=== PATIENT | female | born 1975 | race Caucasian/White ===

== ENCOUNTER 2021-11-26 21:53 | Emergency (ER) | payer OTHER, SELFPAY ==
[2021-11-26] VITALS (7 sets, daily range): BP systolic 99–147; BP diastolic 65–99; PULSE 66–109; RESP 13–20; TEMP 37.3–37.5; O2SAT 97–99; BMI 23.5
--- NOTE | 2021-11-26 21:55 | EKG12_ITS ---
Test Reason : STROKE Blood Pressure : / mmHG Vent. Rate : 100 BPM Atrial Rate : 100 BPM P-R Int : 140 ms QRS Dur : 084 ms QT Int : 356 ms P-R-T Axes : 047 065 054 degrees QTc Int : 459 ms Normal sinus rhythm Normal ECG Confirmed by KENIA MOHAN, EVIN ([id number]), online content editor SABINA CAREY ([id number]) on 11/28/2021 9:42:36 AM Referred By: BRODY Confirmed By:BELLE AQUINO MD
--- NOTE | 2021-11-26 21:55 | CT_ITS ---
STUDY: CTA HEAD AND NECK WITH CONTRAST REASON FOR EXAM: Female, 46 years old. Neuro deficit, acute, stroke suspected RADIATION DOSAGE (If Supplied By Facility): CTDIvol = ( 14.63 ) mGy, DLP = ( 660.71 ) mGycm TECHNIQUE: CT angiography was performed with a multi-detector CT scanner. Data acquisition was obtained from the skull base through the vertex following intravenous administration of IV 100mL Isovue-370. MIP images were reconstructed from the axial data set. Post-processing of the angiographic images was performed, with multiplanar reformation and 3D reconstruction. Individualized dose optimization techniques were used for this CT. COMPARISON: No relevant priors. FINDINGS: Normal bilateral petrous carotid arteries. Normal right cavernous carotid artery with a normal supraclinoid bifurcation. Normal left cavernous carotid artery with a normal supraclinoid bifurcation. Normal right A1 segments of the anterior cerebral artery. Normal left A1 segments of the anterior cerebral artery. Normal intact anterior communicating artery (ACOM). Normal bilateral A2 segments of the anterior cerebral arteries. Normal right M1 and M2 segments of the middle cerebral arteries, with a normal M1 bifurcation. Normal left M1 and M2 segments of the middle cerebral arteries, with a normal M1 bifurcation. There is non-visualization of the right posterior communicating artery (PCOM). Normal left posterior communicating artery (PCOM). Normal bilateral vertebral arteries. Normal basilar artery with a normal basilar bifurcation. The visualized bilateral superior cerebellar (SCA) arteries are normal. Normal bilateral P1, P2 and visualized P3 segments of the posterior cerebral arteries. There is no demonstrated aneurysm of the [place]. There is no demonstrated abnormality of the visualized brain. AORTIC ARCH: Normal visualized aortic arch. Normal origins of the brachiocephalic, left common carotid, and left subclavian arteries. RIGHT CAROTID ARTERIES: Normal right common carotid artery (CCA). Normal right common carotid bulb. Normal origin of the right internal carotid (ICA) artery without a hemodynamically significant stenosis. Normal visualized cervical portion of the right internal carotid artery. Normal origin of the right external carotid artery (ECA). LEFT CAROTID ARTERIES: Normal left common carotid artery (CCA). Normal left common carotid bulb. Normal origin of the left internal carotid (ICA) artery without a hemodynamically significant stenosis. Normal visualized cervical portion of the left internal carotid artery. Normal origin of the left external carotid artery (ECA). VERTEBRAL ARTERIES: Normal bilateral vertebral arteries. Other: There is postoperative change of the thyroid. CT/STROKE CTA Head AND Neck W/Con IMPRESSION: Normal CTA Head and neck with contrast. No aneurysm or large vessel occlusion. No internal carotid artery stenosis. N.B. : The above Results were Read Back by Teofilo Mg MD to Dr. Leandra MD, and understanding confirmed on 11/26/2021 22:30:05 (ET). Electronically Signed: Teofilo Mg MD at 22:34 EDT ,
--- NOTE | 2021-11-26 21:55 | CT_ITS ---
We are attempting to reach an attending provider to discuss findings. An addendum with communication details will be sent when the communication is complete. STROKE ALERT: HELICAL COMPUTED TOMOGRAPHY OF THE BRAIN WITHOUT CONTRAST ENHANCEMENT OF 2203 HOURS ON 11/26/2021: CLINICAL: 46-year-old female with an acute neurologic deficit, evaluate for a cerebrovascular accident. PROCEDURE: A helical CT of the brain was performed without contrast enhancement was demonstrated and osseous and soft tissue algorithm in the axial, coronal, and sagittal projections. FINDINGS: There is no evidence of ischemic or hemorrhagic cerebral infarct. There is no evidence of intracranial neoplasm. There is no subdural, epidural or intracerebral hematoma, hemorrhage or contusion. Ventricular system is of normal size progression. There is no evidence of cortical, central, or cerebellar atrophy. The posterior fossa is normal appearance. The sella and pituitary are normal. Normal calvarium without linear depressed skull fractures. The paranasal sinuses are normal. CT/STROKE Brain/Head without Cont IMPRESSION: 1. Normal examination. 2. No evidence of acute ischemic or hemorrhagic cerebral infarct. 3. No evidence of intracranial neoplasm. 4. No subdural, epidural, or intracerebral hematoma, hemorrhage or contusion. 5. Normal calvarium and paranasal sinuses. PS: These findings were relayed by telephone to the referring clinician at 2219 hours on 11/26/2021. Electronically Signed: Eduardo Romero MD at 22:21 EDT ,
[2021-11-26 22:00] LABS: Bedside Glucose 90 mg/dL (74-106)
--- NOTE | 2021-11-26 22:04 | EX.ED.DYSGE1 ---
HPI History of Present Illness Chief Complaint: Neuro S/Sx Narrative Narrative: Patient is a 46-year-old female with past medical history of hypothyroidism currently on Synthroid as well as anxiety for which she takes Ativan as needed. Patient states that around 1:00 AM she awoke from sleep and felt like she had some slurred speech and numbness which spontaneously resolved. She reports she had difficulty sleeping after this and therefore she felt tired and weak and off all day. she states about 45 minutes prior to arrival she began with similar symptoms and as this was the second time it occurred today she presents for evaluation. [facility] Medical History (Updated 11/26/21 @ 23:[address] Cris Delcid MD) Anxiety Chiari malformation Former tobacco use GERD (gastroesophageal reflux disease) Hypothyroidism Peptic ulcer disease Home Medications levothyroxine [Synthroid] 88 mcg PO DAILY 11/26/21 [History Last Taken Unknown] lorazepam 0.5 mg PO PRN PRN 11/26/21 [History Last Taken Unknown] norethindrone-e.estradiol-iron 1 tab PO DAILY 11/26/21 [History Last Taken Unknown] Allergy/AdvReac Type Severity Reaction Status Date / Time No Known Allergies Allergy Verified 11/26/21 22:06 Surgical History (Updated 11/26/21 @ 23:[address] Cris Delcid MD) H/O esophagogastroduodenoscopy H/O thyroidectomy Previous section Social History (Updated 11/26/21 @ 22:[address] Cris Delcid MD) household members: spouse Smoking Status: Former smoker [facility] ED Constitutional Constitutional ED: Denies chills or fever(s) ENT ENT ED: Denies sore throat Cardiovascular Cardiovascular: Denies chest pain Respiratory/Chest Respiratory/Chest: Denies cough or dyspnea Gastrointestinal Gastrointestinal: Denies abdominal pain, diarrhea, nausea or vomiting Genitourinary Genitourinary ED: Denies dysuria Musculoskeletal Musculoskeletal: Denies myalgias Integumentary Denies rash Neurologic Neurologic: Reports paresthesias and weakness; Denies headache(s) Psychiatric Psychiatric: Reports anxiety Hematologic/Lymphatic Hematologic/Lymphatic: Denies easy bleeding or easy bruising EXAM Physical Exam Const Vital Signs: 11/26/21 21:55 11/26/21 21:58 11/26/21 22:03 Temperature 99.5 F H 99.2 F H Temperature Source Temporal Temporal Pulse Rate 109 H 109 H Respiratory Rate 20 H 20 H Blood Pressure 147/99 H 147/99 H Blood Pressure Mean 115 115 Pulse Ox 99 99 99 Oxygen Delivery Method Room Air Room Air Room Air 11/26/21 22:21 11/26/21 22:30 11/26/21 23:00 Temperature 99.1 F Temperature Source Oral Pulse Rate 94 66 71 Respiratory Rate 14 16 13 Blood Pressure 109/87 H 109/78 99/65 Blood Pressure Mean 94 88 76 Pulse Ox 99 98 97 Oxygen Delivery Method Room Air Room Air Room Air Positive well nourished and well developed General Appearance ED: well developed HEENT Reports moist mucous membranes Eyes PERRL and EOMs intact bilaterally Neck supple Resp normal respiratory effort and clear to auscultation bilaterally Cardio regular rhythm Rate: tachycardic and other Other Details: Slightly tachycardic rate with regular rhythm radial pulses are +2-4 bilaterally are equal and symmetric. GI normal to inspection, nondistended, normoactive bowel sounds, non-tender, non-distended and no masses Auscultation: normoactive bowel sounds Palpation: soft Extremity normal to inspection Neuro oriented x3 Neuro Narrative: Patient is awake alert and oriented to person place and time. There is no weakness of either extremities no pronator drift or dysmetria or truncal ataxia. The reported paresthesias have spontaneously resolved. She does have mild dysarthria for which she receives an NIH stroke scale score of 1. Sensorium / Orientation: alert Motor Exam: strength 5/5 throughout Psych Psych Narrative: Patient has a flat affect Skin no rashes or lesions noted MDM MDM MDM Narrative Medical decision making narrative: Patient presented to the ER slightly hypertensive and tachycardic. She had slight slurring of her speech given her stroke scale score of 1. Because of her report of paresthesias and the mild dysarthria a stroke alert was activated. The patient CT and CTA revealed no acute finding. The patient was evaluated by the telemetry neurologist Dr. Miller. He agrees that there is no need for tPA at this time and he does not feel that the patient's symptoms are related to any type of TIA or acute stroke. He does recommend patient follow-up with neurology but agrees it is not necessary have to be on an emergent basis. He does agree that as the patient reports the symptoms have happened in the past and they always seem to be the same symptoms that the chance of this being an acute stroke is low and most like related to conversion or anxiety disorder. the patient was observed in the ER and her vitals normalized and her exam remained stable with actually improvement of her speech with treatment of the anxiety. Therefore at this time patient is safe for discharge and can follow-up with neurology on an outpatient basis as well as her family doctor to discuss further testing such as MRI if symptoms return Lab Data Attestation: I reviewed the patient's lab results. Labs: Laboratory Results - last 24 hr 11/26/21 11/26/21 11/26/21 21:58 22:01 22:01 WBC 12.1 H RBC 4.55 Hgb 14.4 Hct 43.2 MCV 94.9 MCH 31.6 MCHC 33.3 RDW Std Deviation 44.2 H RDW Coeff of Memo 12.8 Plt Count 446 MPV 10.0 Immature Gran % (Auto) 0.300 Neut % (Auto) 60.5 Lymph % (Auto) 31.5 [place] % (Auto) 6.1 Eos % (Auto) 1.0 Baso % (Auto) 0.6 Absolute Neuts (auto) 7.3 Absolute Lymphs (auto) 3.79 Nucleated RBC % 0 PT 13.2 INR 1.0 APTT 31.9 Sodium Potassium Chloride Carbon Dioxide Anion Gap BUN Creatinine Estim Creat Clear Calc Est GFR (MDRD) Af Amer Est GFR (MDRD) Non-Af BUN/Creatinine Ratio Glucose Calcium Troponin I High Sens POC Glucose 90 11/26/21 22:01 WBC RBC Hgb Hct MCV MCH MCHC RDW Std Deviation RDW Coeff of Memo Plt Count MPV Immature Gran % (Auto) Neut % (Auto) Lymph % (Auto) [place] % (Auto) Eos % (Auto) Baso % (Auto) Absolute Neuts (auto) Absolute Lymphs (auto) Nucleated RBC % PT INR APTT Sodium 140 Potassium 3.3 L Chloride 104 Carbon Dioxide 28.0 Anion Gap 8 BUN 9 Creatinine 0.91 Estim Creat Clear Calc 61.75 Est GFR (MDRD) Af Amer 86 Est GFR (MDRD) Non-Af 71 BUN/Creatinine Ratio 9.9 L Glucose 97 Calcium 9.1 Troponin I High Sens < 3 L POC Glucose Radiography Diagnostic Testing: Clinical Impression(s) from Imaging Studies Brain CT 11/26/21 21:55 IMPRESSION: 1. Normal examination. 2. No evidence of acute ischemic or hemorrhagic cerebral infarct. 3. No evidence of intracranial neoplasm. 4. No subdural, epidural, or intracerebral hematoma, hemorrhage or contusion. 5. Normal calvarium and paranasal sinuses. PS: These findings were relayed by telephone to the referring clinician at 2219 hours on 11/26/2021. Electronically Signed: Eduardo Romero MD at 22:21 EDT , ADDENDUM: 11/26/21 2228 IMPRESSION: 1. Normal examination. 2. No evidence of acute ischemic or hemorrhagic cerebral infarct. 3. No evidence of intracranial neoplasm. 4. No subdural, epidural, or intracerebral hematoma, hemorrhage or contusion. 5. Normal calvarium and paranasal sinuses. PS: These findings were relayed by telephone to the referring clinician at 2219 hours on 11/26/2021. N.B. : The above Results were Read Back by Eduardo Romero MD to Dr. Leandra MD, and understanding confirmed on 11/26/2021 22:21:50 (ET). Electronically Signed: Eduardo Romero MD at 22:21 EDT , Head/Neck CTA 11/26/21 21:55 IMPRESSION: Normal CTA Head and neck with contrast. No aneurysm or large vessel occlusion. No internal carotid artery stenosis. N.B. : The above Results were Read Back by Teofilo Mg MD to Dr. Leandra MD, and understanding confirmed on 11/26/2021 22:30:05 (ET). Electronically Signed: Teofilo Mg MD at 22:34 EDT , ADDENDUM: 11/26/21 2241 IMPRESSION: Normal CTA Head and neck with contrast. No aneurysm or large vessel occlusion. No internal carotid artery stenosis. N.B. : The above Results were Read Back by Teofilo Mg MD to Dr. Leandra MD, and understanding confirmed on 11/26/2021 22:30:05 (ET). Electronically Signed: Teofilo Mg MD at 22:34 EDT Reading Location ID and State: [facility] / [place] , Service support , 1 view chest x-ray as interpreted by the emergency medicine physician reveals no acute infiltrate pneumothorax or pleural effusion Discharge Plan Triage Chief Complaint: Neuro S/Sx ED Provider: Mc Mobley Dx/Rx/DC Orders Clinical Impression: Paresthesia, Dysarthria, Anxiety Instructions: ED Anxiety Reaction, ED Paraesthesias Prescriptions: No Action levothyroxine [Synthroid] 88 mcg tablet 88 mcg PO DAILY RF: 0 lorazepam 0.5 mg tablet 0.5 mg PO PRN PRN (Reason: Anxiety) RF: 0 norethindrone-e.estradiol-iron 1 mg-20 mcg (21)/75 mg (7) tablet 1 tab PO DAILY RF: 0 Primary Care Provider: Graciela Sheridan NP Referrals: Matt King MD [STAFF PHYSICIAN] - 3-5 Days Graciela Sheridan NP, [employer] [Primary Care Provider] - Disposition Disposition: Home, Self Care
[2021-11-26 22:08] LABS: Absolute Lymphocyte Count 3.79 X10^3/uL (0.83-4.51); Absolute Neutrophil Count 7.3 X10^3/uL (2.0-7.7); Basophil# 0.07 X10^3/uL; Basophil% 0.6 % (0-1); Eosinophil# 0.12 X10^3/uL; Hematocrit 43.2 % (37-47); Hemoglobin 14.4 g/dL (12.0-15.0); Lymphocyte # 3.79 X10^3/ul (0.83-4.51); Lymphocyte % 31.5 % (19-41); Mean Corp Hgb Conc 33.3 g/dL (32-36); Mean Corpuscular Hgb 31.6 pg (27.0-32.0); Mean Corpuscular Volume 94.9 fL (81-99); Monocyte# 0.74 X10^3/uL; Monocyte% 6.1 % (0-10); NRBC Flagged by Analyzer 0 % (0-5); Neutrophil # 7.29 X10^3/uL (2.7-7.7); Neutrophil % 60.5 % (47-70); Platelet Count 446 K/mm3 (150-450); RBC Distribution Width CV 12.8 % (11.6-14.6); RBC Distribution Width SD 44.2 fl (35.1-43.9); Red Blood Count 4.55 M/mm3 (4.2-5.4); White Blood Count 12.1 K/mm3 (4.4-11.0)
[2021-11-26 22:19] LABS: Prothrombin Time (Protime)PT. 13.2 SECONDS (11.7-14.9)
[2021-11-26 22:20] LABS: Partial Thromboplast Time 31.9 Seconds (24.1-36.2)
[2021-11-26 22:28] LABS: Anion Gap 8 (5-15); BUN 9 mg/dL (7-18); BUN/Creat Ratio 9.9 RATIO (10-20); Calcium,Total 9.1 mg/dL (8.5-10.1); Chloride 104 mmol/L (98-107); Creatinine, Serum 0.91 mg/dL (0.55-1.02); EST Glomerular Filtration Rate 71 mL/min (>60); Est Glom Filt Rate - Afr Amer 86 mL/min (>60); Estimated Creatinine Clearance 61.75 ml/min; Glucose 97 mg/dL (74-106); Potassium 3.3 mmol/L (3.5-5.1); Sodium Level 140 mmol/L (136-145); Troponin-I HS < 3 pg/mL (3.0-54.0)
--- NOTE | 2021-11-26 22:35 | RAD_ITS ---
STUDY: X-RAY CHEST REASON FOR EXAM: Female, 46 years old. Neuro deficit, acute, stroke suspected TECHNIQUE: Single AP portable view of the chest. COMPARISON: None. FINDINGS: There are monitoring devices. The lungs are clear and expanded. There is no demonstrated pleural abnormality. Normal size heart. Normal mediastinum and darrius. Normal visualized pulmonary arteries. Normal visualized aortic arch and descending thoracic aorta. Normal visualized thoracic spine. Normal visualized ribs, clavicles, and shoulders. There is no demonstrated abnormality of the visualized soft tissue structures of the upper abdomen. RAD/Chest 1 View IMPRESSION: Normal x-ray examination of the chest. Electronically Signed: Teofilo Mg MD at 23:53 EDT Reading Location ID and State: [facility] / [place] , Service support ,
[2021-11-26] MEDS: LORazepam 2 MG/ML Syringe 1 MG IV (22:49)
--- NOTE | 2021-11-26 23:04 | ED.RN ---
IV BAG WOULD NOT SCAN. ASHLEY RN VERIFIED.
== END 2021-11-26 23:42 | disposition home or self-care (01) ==
PROVIDERS: Emergency Medicine; Emergency Provider Emergency Medicine; PCP Nurse Practitioner Primary Care; Visit Provider Emergency Medicine
DX: R20.2 Paresthesia of skin (principal); R47.1 Dysarthria and anarthria; F41.9 Anxiety disorder, unspecified; R47.81 Slurred speech; E03.9 Hypothyroidism, unspecified; Z79.899 Other long term (current) drug therapy; Z87.891 Personal history of nicotine dependence
CPT/HCPCS: 70450; 70496; 70498; 71045; 80048; 82962; 84484; 85025; 85610; 85730; 93005; 96361; 96374; 99284; J7030; Q9967; A4216

== ENCOUNTER 2024-04-28 14:58 | Emergency (ER) | payer OTHER, SELFPAY ==
[2024-04-28 14:59] VITALS: BP 147/93; PULSE 81; RESP 16; TEMP 37; O2SAT 98; BMI 22.0
--- NOTE | 2024-04-28 15:47 | EKG12_ITS ---
Test Reason : Blood Pressure : / mmHG Vent. Rate : 062 BPM Atrial Rate : 062 BPM P-R Int : 136 ms QRS Dur : 090 ms QT Int : 392 ms P-R-T Axes : 055 058 048 degrees QTc Int : 397 ms Normal sinus rhythm Normal ECG Confirmed by EMMANUEL CHISHOLM MD ([id number]), sound editor MACKENZIE ASH ([id number]) on 05/02/2024 10:06:23 AM Referred By: Confirmed By:EMMANUEL CHISHOLM MD
--- NOTE | 2024-04-28 15:48 | CT_ITS ---
INDICATION: dizzy EXAMINATION: CT BRAIN - CT Head or Brain W/O Contrast Injection TECHNIQUE: Multiple axial images were obtained of the head without intravenous contrast. A radiation dose optimization technique was used for this scan. IV Contrast dosage and agent: None. COMPARISON: 11/26/2021 FINDINGS: BRAIN PARENCHYMA: No intra- or extra-axial hemorrhage. No evidence of acute infarct. No intracranial mass or mass effect. There is preservation of the chaudhry/white matter interface. Posterior fossa structures are unremarkable. CSF SPACES: Appropriate for age. No hydrocephalus. Basal cisterns are patent. CALVARIUM, SKULL BASE, PARANASAL SINUSES AND MASTOID AIR CELLS: Clear. No discrete lytic or blastic abnormalities. ORBITS: Both globes, extraocular muscles, optic nerves and retrobulbar fat appear unremarkable. CT/Brain/Head without Contrast IMPRESSION: No acute intracranial findings. Electronically Signed: Shawn Hill MD at 17:49 EDT ,
--- NOTE | 2024-04-28 16:10 | EX.ED.DYSGE1 ---
HPI <YASMIN Byers - Last Filed: 04/28/24 18:27> History of Present Illness Chief Complaint: Dizziness Narrative Narrative: Patient is a 49-year-old female with history of hypothyroidism, anxiety, Chiari malformation who presents to the [facility] with 1 month of generalized feeling of dizziness, lightheadedness. 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 Patient states it does not really matter what she is doing, today, the reason why she is here if she was getting her hair done, and felt like she was going to have a syncopal episode in the salon. Patient then drove here. She denies any chest pain, shortness of breath. Patient states that she currently does not have a PCP and cannot get into 1 till the end of May. Patient denies any recent surgeries, and did see her neuropsychiatric aide and her thyroid level was within normal limits. [facility] <YASMIN Byers - Last Filed: 04/28/24 18:27> [facility] Medical History (Updated 04/28/24 @ 18:27 by YASMIN Byers) GERD (gastroesophageal reflux disease) Peptic ulcer disease Former tobacco use Hypothyroidism Anxiety Chiari malformation Home Medications ?Medication ?Instructions ?Recorded ?Last Taken ?Type levothyroxine 88 mcg tablet 88 mcg PO DAILY 11/26/21 Unknown History (Synthroid) lorazepam 0.5 mg tablet 0.5 mg PO PRN PRN Anxiety 11/26/21 Unknown History norethindrone 1 mg-ethinyl 1 tab PO DAILY 11/26/21 Unknown History estradiol 20 mcg (21)-iron 75 mg (7) tablet Allergy/AdvReac Type Severity Reaction Status Date / Time No Known Allergies Allergy Verified 04/28/24 15:00 Surgical History (Updated 11/26/21 @ 23:[address] Cris Delcid MD) H/O esophagogastroduodenoscopy Previous section H/O thyroidectomy Social History (Updated 11/26/21 @ 22:[address] Cris Delcid MD) household members: spouse Smoking Status: Former smoker ROS <YASMIN Byers - Last Filed: 04/28/24 18:27> ROS ED ROS Narrative Constitutional: Negative for fever, chills, weight loss, weakness Eyes: Negative for vision loss, vision change, double vision ENT: Negative for any sore throat, ear pain, congestion Cardiovascular: Negative for any chest pain, tightness, palpitations Respiratory: Negative for any cough, sputum production, hemoptysis, dyspnea, dyspnea on exertion, orthopnea Gastrointestinal: Negative for any abdominal pain, nausea, vomiting, diarrhea, constipation, blood in stool, blood in vomit : Negative for any urinary frequency, dysuria, retention, blood in urine Muscle skeletal: Negative for any neck pain, back pain Neurological: Negative for any headache. Positive for feeling of near syncope, dizziness Skin: Negative for any rashes, itching, abrasions, lacerations Psychiatric: Negative for any depression, anxiety, stress, suicidal ideation, homicidal ideation Hematologic: Negative for any excessive bruising, easy bleeding EXAM <YASMIN Byers - Last Filed: 04/28/24 18:27> Physical Exam Narrative Exam Narrative: Vital signs reviewed. HEET: Head normocephalic atraumatic, TMs clear bilaterally. Posterior pharynx is clear, moist mucous membranes. Nares clear bilaterally. Neck: Supple with no lymphadenopathy or tenderness. No signs of meningismus. Cardiac: Regular rate and rhythm no murmurs gallops or rubs, equal peripheral pulses bilaterally. Respiratory: Lungs clear to auscultation bilaterally. No chest tenderness. Abdomen: Soft, nontender, nondistended. No abdominal bruit or pulsatile masses. No hepatosplenomegaly Extremities: No peripheral edema, no signs of gross trauma or deformity. Active full range of motion of all extremities. Neuro: Cranial nerves II through XII intact, no focal neurological deficits. NIH stroke scale 0, negative nystagmus, Esther-Hallpike maneuver was negative. Skin: Clean dry and intact with no rash, purpura, petechiae, vesicles or pustules. Backs/flank: No CVA tenderness, no midline spinal tenderness, no deformity. Psych: Normal mood and affect. No SI, HI or acute psychosis. Const Vital Signs: 04/28/24 14:59 04/28/24 16:59 04/28/24 18:00 Temperature 98.6 F 97.6 F L Temperature Source Oral Pulse Rate 81 84 80 Respiratory Rate 16 17 17 Blood Pressure 147/93 H 117/70 117/70 Blood Pressure Mean 111 85 85 Pulse Ox 98 100 99 Oxygen Delivery Method Room Air Room Air <Dr. John Farley DO - Last Filed: 04/28/24 18:53> Physical Exam Const Vital Signs: 04/28/24 14:59 04/28/24 16:59 04/28/24 18:00 Temperature 98.6 F 97.6 F L Temperature Source Oral Pulse Rate 81 84 80 Respiratory Rate 16 17 17 Blood Pressure 147/93 H 117/70 117/70 Blood Pressure Mean 111 85 85 Pulse Ox 98 100 99 Oxygen Delivery Method Room Air Room Air MDM <YASMIN Byers - Last Filed: 04/28/24 18:27> [facility] [place] Lab Data Labs: Laboratory Results - last 24 hr 04/28/24 04/28/24 16:22 18:00 WBC 8.3 RBC 4.04 L Hgb 12.6 Hct 38.4 MCV 95.0 MCH 31.2 MCHC 32.8 RDW Std Deviation 41.1 RDW Coeff of Memo 11.8 Plt Count 382 MPV 10.0 Immature Gran % (Auto) 0.100 Neut % (Auto) 60.7 Lymph % (Auto) 31.5 [place] % (Auto) 6.0 Eos % (Auto) 1.1 Baso % (Auto) 0.6 Absolute Neuts (auto) 5.0 Absolute Lymphs (auto) 2.61 Nucleated RBC % 0 Sodium 141 Potassium 3.6 Chloride 107 Carbon Dioxide 31.0 Anion Gap 3 L BUN 14 Creatinine 0.71 Estim Creat Clear Calc 76.64 Est GFR (MDRD) Af Amer 113 Est GFR (MDRD) Non-Af 93 BUN/Creatinine Ratio 19.7 Glucose 86 Calcium 8.9 Total Bilirubin 0.40 AST 14 L ALT 20 Alkaline Phosphatase 47 Troponin I High Sens 3 Total Protein 6.6 Albumin 3.4 Globulin 3.2 Albumin/Globulin Ratio 1.1 Lipase 52 Urine Color Yellow Urine Clarity Clear Urine pH 6.0 Ur Specific [place] 1.010 Urine Protein Negative Urine Glucose (UA) Normal Urine Ketones Negative Urine Occult Blood 25 H Urine Nitrite Negative Urine Bilirubin Negative Urine Urobilinogen Normal Ur Leukocyte Esterase Negative Urine RBC 0-5 SEEN Urine WBC 0 SEEN Ur Squamous Epith Cells 5-10 SEEN Urine Bacteria 0 SEEN Urine Mucus 0 SEEN Radiography Diagnostic Testing: Clinical Impression(s) from Imaging Studies Brain CT 04/28/24 15:48 IMPRESSION: No acute intracranial findings. Electronically Signed: Shawn Hill MD at 17:49 EDT , Chest X-Ray 04/28/24 16:20 IMPRESSION: No radiographic evidence of acute cardiopulmonary disease. Electronically Signed: Shawn Hill MD at 16:48 EDT , EKG Normal sinus rhythm: Attestation: I personally reviewed and interpreted this EKG as follows: Interpretation: Sinus Rhythm Comments: EKG shows normal sinus rhythm, rate of 62 bpm, TN interval 1 to 36 ms, QRS duration 90 ms, no acute ST elevation, no acute infarct noted. Treatment and Re-Evaluation :: Differential diagnosis includes however is not limited to: Vertigo, electro abnormality, orthostatic hypotension, anxiety Patient appears generally well, vital signs are stable, patient is nontoxic-appearing. Presenting to the emergency department with complaints of dizziness on and off for 1 month. Patient did receive a cardiac workup, patient's EKG was unremarkable, troponin was negative. Patient CT scan of the brain, chest x-ray was grossly unremarkable. Orthostatic vital signs were negative. Patient urinalysis was negative for any infection. I spoke with the patient at length, she was most concerned about her electrolytes and her kidney function. Patient will need to follow-up outpatient. There is no evidence suspect any stroke, benign positional peripheral vertigo, central vertigo. Patient at this time will be discharged home. Struck to return for any worsening symptoms peer <Dr. John Farley, DO - Last Filed: 04/28/24 18:53> [facility] Narrative Medical decision making narrative: I have personally performed a face to face assessment of the patient and have reviewed the HERVE Note. I performed a substantive portion of the visit including all aspects of the following. My young findings include: History: Patient presents with lightheadedness that has been intermittent over the last month. Patient states she just feels lightheaded intermittently. Patient states nothing makes it better nothing makes it worse. Patient denies any syncopal episodes. Patient denies any fevers or chills. Patient states that sometimes she has some changes in her vision when this occurs. Patient also admits to some mild pain in her chest when this occurs. Patient denies any shortness of breath. Patient denies any palpitations. Patient denies any nausea or vomiting. Exam: Vital signs are stable. Patient is afebrile. Patient is alert no acute distress. Oral mucosa is pink and moist. Neck is supple. Trachea is midline. There is no JVD. Heart was regular rate and rhythm. Lungs are clear and equal bilaterally. Abdomen is soft. Bowel sounds are normal. There is no tenderness. Cranial nerves II through XII are intact. There are no focal motor or sensory deficits noted. Medical Decision Making: Differential diagnosis includes dehydration, electrolyte abnormality, pancreatitis, cardiac dysrhythmia, cardiac ischemia, and anxiety. EKG will be obtained to assess for cardiac dysrhythmia and cardiac ischemia. Chest x-ray will be obtained to assess for pneumonia and pneumothorax. CT scan of the brain will be obtained to assess for stroke and intracranial bleeding. CBC will be obtained to assess for leukocytosis and anemia. Comprehensive metabolic profile will be obtained to assess for hepatic function, renal function, and electrolyte abnormality. High-sensitivity troponin will be obtained to assess for cardiac ischemia. Urinalysis will be obtained to assess for urinary tract infection and hematuria. Lipase will be obtained to assess for pancreatitis. EKG was obtained. On my independent interpretation, it shows a normal sinus rhythm with a rate of 62. There are no acute ST or T wave changes noted. CBC was reviewed and was within normal limits. Comprehensive metabolic profile was reviewed and was within normal limits. High-sensitivity troponin was reviewed and was normal at 3. Lipase was reviewed and was normal at 52. Portable 1 view chest x-ray was obtained. On my independent interpretation, lung waterman are clear. There is normal cardiac silhouette. Bony thorax is normal. There is no acute process noted. Radiologist also interpreted the x-ray and agrees. Urinalysis was reviewed. There is no evidence of urinary tract infection or hematuria. CT scan of the brain was obtained. There is no acute intracranial abnormality. This was interpreted by the radiologist and was also independently reviewed by myself. Patient was advised of her findings. Patient was instructed to rest in a dark quiet room. Patient was instructed to drink plenty of fluids. Patient was instructed to follow-up with her primary care physician in 5 to 7 days for further evaluation and management. Patient understood and was agreeable with the plan. All questions were answered. Lab Data Labs: Laboratory Results - last 24 hr 04/28/24 04/28/24 16:22 18:00 WBC 8.3 RBC 4.04 L Hgb 12.6 Hct 38.4 MCV 95.0 MCH 31.2 MCHC 32.8 RDW Std Deviation 41.1 RDW Coeff of Memo 11.8 Plt Count 382 MPV 10.0 Immature Gran % (Auto) 0.100 Neut % (Auto) 60.7 Lymph % (Auto) 31.5 [place] % (Auto) 6.0 Eos % (Auto) 1.1 Baso % (Auto) 0.6 Absolute Neuts (auto) 5.0 Absolute Lymphs (auto) 2.61 Nucleated RBC % 0 Sodium 141 Potassium 3.6 Chloride 107 Carbon Dioxide 31.0 Anion Gap 3 L BUN 14 Creatinine 0.71 Estim Creat Clear Calc 76.64 Est GFR (MDRD) Af Amer 113 Est GFR (MDRD) Non-Af 93 BUN/Creatinine Ratio 19.7 Glucose 86 Calcium 8.9 Total Bilirubin 0.40 AST 14 L ALT 20 Alkaline Phosphatase 47 Troponin I High Sens 3 Total Protein 6.6 Albumin 3.4 Globulin 3.2 Albumin/Globulin Ratio 1.1 Lipase 52 Urine Color Yellow Urine Clarity Clear Urine pH 6.0 Ur Specific [place] 1.010 Urine Protein Negative Urine Glucose (UA) Normal Urine Ketones Negative Urine Occult Blood 25 H Urine Nitrite Negative Urine Bilirubin Negative Urine Urobilinogen Normal Ur Leukocyte Esterase Negative Urine RBC 0-5 SEEN Urine WBC 0 SEEN Ur Squamous Epith Cells 5-10 SEEN Urine Bacteria 0 SEEN Urine Mucus 0 SEEN Radiography Diagnostic Testing: Clinical Impression(s) from Imaging Studies Brain CT 04/28/24 15:48 IMPRESSION: No acute intracranial findings. Electronically Signed: Shawn Hill MD at 17:49 EDT , Chest X-Ray 04/28/24 16:20 IMPRESSION: No radiographic evidence of acute cardiopulmonary disease. Electronically Signed: Shawn Hill MD at 16:48 EDT , Discharge Plan Triage Chief Complaint: Dizziness ED Midlevel Provider: Daniel Lincoln ED Provider: John Farley Dx/Rx/DC Orders Clinical Impression: Dizziness, Near syncope Instructions: Chiari Malformation, ED Dizziness, Uncertain Cause, ED Fainting, Uncertain Cause Prescriptions: No Action levothyroxine [Synthroid] 88 mcg tablet 88 mcg PO DAILY lorazepam 0.5 mg tablet 0.5 mg PO PRN PRN (Reason: Anxiety) norethindrone-e.estradiol-iron 1 mg-20 mcg (21)/75 mg (7) tablet 1 tab PO DAILY Patient Comments: take 1 tablet by mouth once daily Primary Care Provider: Seymour Lu Referrals: Seymour Lu MD [Primary Care Provider] - Activity Restrictions/Additional Instructions: Please continue to follow-up outpatient. Print Language: Grenadian Disposition Disposition: Home, Self Care Discharge Date/Time: 04/28/24 18:44
--- NOTE | 2024-04-28 16:20 | RAD_ITS ---
INDICATION: cough EXAMINATION/TECHNIQUE: X-RAY - portable upright AP chest x-ray COMPARISON: 11/26/2021 FINDINGS: LINES/DEVICES: None. LUNGS: No consolidation, edema or effusion. No pneumothorax. MEDIASTINUM AND CARDIOVASCULAR STRUCTURES: Cardiac silhouette not enlarged. Central airways and mediastinal contour are unremarkable. BONES AND SOFT TISSUES: Unremarkable. RAD/Chest 1 View (Portable) IMPRESSION: No radiographic evidence of acute cardiopulmonary disease. Electronically Signed: Shawn Hill MD at 16:48 EDT ,
[2024-04-28 16:32] LABS: Absolute Lymphocyte Count 2.61 X10^3/uL (0.83-4.51); Basophil# 0.05 X10^3/uL; Basophil% 0.6 % (0-1); Eosinophil# 0.09 X10^3/uL; Eosinophils% 1.1 % (0-5); Hematocrit 38.4 % (37-47); Hemoglobin 12.6 g/dL (12.0-15.0); Lymphocyte # 2.61 X10^3/ul (0.83-4.51); Lymphocyte % 31.5 % (19-41); Mean Corp Hgb Conc 32.8 g/dL (32-36); Mean Corpuscular Hgb 31.2 pg (27.0-32.0); NRBC Flagged by Analyzer 0 % (0-5); Neutrophil # 5.02 X10^3/uL (2.7-7.7); Neutrophil % 60.7 % (47-70); Platelet Count 382 K/mm3 (150-450); RBC Distribution Width CV 11.8 % (11.6-14.6); RBC Distribution Width SD 41.1 fl (35.1-43.9); Red Blood Count 4.04 M/mm3 (4.2-5.4); White Blood Count 8.3 K/mm3 (4.4-11.0)
[2024-04-28 16:49] LABS: ALB/GLOB Ratio 1.1 RATIO (0.9-2.4); AST(SGOT) 14 U/L (15-37); Alanine Aminotransfer ALT/SGPT 20 U/L (13-56); Albumin, Serum 3.4 g/dL (3.2-5.0); Alkaline Phosphatase 47 U/L (45-117); Anion Gap 3 (5-15); BUN 14 mg/dL (7-18); BUN/Creat Ratio 19.7 RATIO (10-20); Calcium,Total 8.9 mg/dL (8.5-10.1); Chloride 107 mmol/L (98-107); Creatinine, Serum 0.71 mg/dL (0.55-1.02); EST Glomerular Filtration Rate 93 mL/min (>60); Est Glom Filt Rate - Afr Amer 113 mL/min (>60); Estimated Creatinine Clearance 76.64 ml/min; Globulin 3.2 g/dL (2.2-4.2); Glucose 86 mg/dL (74-106); Lipase 52 U/L (13-75); Potassium 3.6 mmol/L (3.5-5.1); Protein, Total 6.6 g/dL (6.4-8.2); Sodium Level 141 mmol/L (136-145); Troponin-I HS 3 pg/mL (3.0-54.0)
[2024-04-28 16:59] VITALS: BP 117/70; PULSE 84; RESP 17; O2SAT 100
[2024-04-28 18:00] VITALS: BP 117/70; PULSE 80; RESP 17; TEMP 36.4; O2SAT 99
[2024-04-28 18:03] LABS: Bacteria 0 SEEN /hpf (None Seen); Mucous, Urine 0 SEEN /hpf (<or=2+); White Blood Cells 0 SEEN /hpf (0-5)
[2024-04-28 18:07] LABS: Color, Urine Yellow (Yellow); Glucose, Dipstick Normal (Normal); Ketone-Dipstick Negative (Negative); Leukocyte Esterase-Dipstick Negative /ul (Negative); Nitrite-Dipstick Negative (Negative); Occult Blood-Urine 25 /ul (Negative); Protein-Dipstick Negative (Negative); Urine Bilirubin Dipstick Negative (Negative); Urine Clarity Clear (Clear); Urine Urobilinogen Normal (Normal)
[2024-04-28 18:15] LABS: Red Blood Cells-Urine 0-5 SEEN /hpf (0-5); Squamous Epithelial Cells - UA 5-10 SEEN /hpf (5-10)
== END 2024-04-28 18:44 | disposition home or self-care (01) ==
PROVIDERS: Nurse Practitioner; Emergency Provider Emergency Medicine; PCP Internal Medicine; Visit Provider Emergency Medicine
DX: R42 Dizziness and giddiness (principal); R55 Syncope and collapse; Z87.891 Personal history of nicotine dependence
CPT/HCPCS: 70450; 71045; 80053; 81001; 83690; 84484; 85025; 93005; 99282